=== PATIENT | female | born 1980 | race Caucasian/White ===

== ENCOUNTER 2021-02-18 12:28 | Emergency (ER) | payer OTHER ==
[~2021-02-18] VITALS: Ht 157.5 cm; Wt 81.8 kg
[~2021-02-18 12:28] MED LIST: TNFMISC
[2021-02-18 14:22] LABS: BASOPHILS % (AUTO) 0.2 % (0.0-2.0); EOSINOPHILS % (AUTO) 0 % (1.0-6.0); HEMATOCRIT 39.5 % (36-46); HEMOGLOBIN 12.9 g/dL (12.0-16.0); LYMPHOCYTES % (AUTO) 8.5 % (22.0-44.0); MEAN CORPUSCULAR HEMOGLOBIN 26.8 pg (26.0-34.0); MEAN CORPUSCULAR HGB CONC 32.6 G/dL (31.0-37.0); MEAN CORPUSCULAR VOLUME 82 fL (80-100); MONOCYTES # (AUTO) 0.5 K/uL (0.1-1.0); MONOCYTES % (AUTO) 3.9 % (2.0-9.0); NEUTROPHILS # (AUTO) 10.6 K/uL (1.8-7.7); PLATELET COUNT (AUTO) 294 K/uL (150-450); RED CELL DISTRIBUTION WIDTH 14.7 % (11.5-14.5)
[2021-02-18 14:24] LABS: NEUTROPHILS % (AUTO) 87.4 % (40.0-70.0)
[2021-02-18 14:37] LABS: ANION GAP 11 mmol/L (8-16); CALCIUM, TOTAL 8.5 mg/dL (8.8-10.5); CARBON DIOXIDE 26 mmol/L (22-29); CHLORIDE 105 mmol/L (98-107); CREATININE 0.68 mg/dL (0.60-1.30); GLOMERULAR FILTR. RATE CALC > 60 mL/min (>60); GLUCOSE,RANDOM 115 mg/dL (70-110); POTASSIUM 4.1 mmol/L (3.5-5.1); SODIUM SERUM 142 mmol/L (136-145); UREA NITROGEN, BLOOD 18 mg/dL (7-18)
[2021-02-18 14:49] LABS: ACETAMINOPHEN < 2 mcg/mL (10-30); ALANINE AMINOTRANSFERASE 14 U/L (12-78); ALBUMIN 3.5 g/dL (3.4-5.0); ALKALINE PHOSPHATASE 76 U/L (46-116); ASPARTATE AMINOTRANSFERASE 11 U/L (15-37); BILIRUBIN,TOTAL 0.2 mg/dL (0.1-1.0); HCG,QUANTITATIVE < 1 mIU/mL (0-6); TOTAL PROTEIN, SERUM 7.1 g/dL (6.4-8.2)
[2021-02-18] MEDS ORDERED: IBUPROFEN 400 MG TABLET PO ONE (15:15)
[2021-02-18] MEDS ORDERED: METOCLOPRAMIDE HCL 10 MG TABLET PO ONE (15:15)
[2021-02-18 16:45] VITALS: BP 116/70
== END 2021-02-18 17:30 | disposition home or self-care (01) ==
LOC: EMS 12:56
DX: T40.1X1A Poisoning by heroin, accidental (unintentional), initial encounter (principal); F32.9 Major depressive disorder, single episode, unspecified; Y92.89 Other specified places as the place of occurrence of the external cause
CPT/HCPCS: 36415; 70450; 80053; 84702; 85025; 93005; 99285; G0480; G0481